=== PATIENT | female | born 1990 | race Caucasian/White ===

== ENCOUNTER 2018-03-28 16:54 | Emergency (ER) | payer OTHER ==
--- NOTE | 2018-03-28 17:33 | EDPHY ---
HPI/HX/ROS/PE/MDM Narrative: CLINICAL IMPRESSION: Right index finger laceration ASSESSMENT/PLAN: Patient is a 27-year-old female with a history of asthma and kidney stones who presents for evaluation of right index finger laceration that occurred approximately an hour and half ago. Patient is not toxic appearing, she is in no distress. Physical examination reveals 1.5 cm laceration across the dorsal aspect of the distal phalanx of the right index finger. There is no evidence of deep structure involvement, neurovascular compromise, foreign body, or bony involvement. The wound was not contaminated, tetanus status was up-to-date. The wound was irrigated and then repaired as discussed in the procedure note, the patient tolerated this well. Wound care instructions discussed. The patient does not have a primary care provider, I provided a referral for her. She can also return to the emergency department to have her sutures removed. She will call to schedule an appointment for wound check and suture removal in 5-7 days, or return here. Return precautions discussed- she will return for increased pain , signs of infection, fever, vomiting, if the wound opens or for any other concerns. Patient verbalizes understanding and is in agreement with plan. Case discussed with and patient seen by Dr. Ramos DIFFERENTIAL DIAGNOSIS: Includes but not limited to laceration of tendon or vascular structure, underlying fracture, laceration with retained FB ED PROCEDURES: Laceration Repair Verbal consent obtained by patient. Risks discussed, including but not limited to infection, pain, retained foreign body, need for additional repair, poor cosmetic result, tendon damage, nerve damage, poor wound healing, vascular damage. Alternatives to repair discussed. Jones protocol used to establish correct patient, procedure, equipment, telecommunications support, and site. Anesthesia obtained by local infiltration]. Anesthetized with 1% lidocaine without epi. Laceration location- dorsal aspect , distal phalanx right index finger, length 1.5 cm, depth 3 mm, Repair type simple, interrupted. Patient was prepped and draped in usual sterile fashion. Hemostasis achieved with direct pressure. Wound explored through full range of motion and entire depth of wound probed and visualized with gloved finger. No suspicion for nerve damage, tendon damage, underlying fracture, vascular damage, foreign body, or contamination. Area was cleansed with Shur-Clens and irrigated with sterile saline as per protocol. No foreign body or material removed. Repair method- 5.0 Prolene, simple interrupted. Five sutures placed. Well aligned, closely approximated. Wound was dressed with antibiotic ointment, non- stick dressing and she was placed in a splint. Patient tolerated well with no immediate complications. Wound care: Clean and dry x 24 hours, gently clean with soap and water, cover with topical antibiotic ointment/bandage. Suture/Staple removal: 5-7 Days CHIEF COMPLAINT: Laceration HPI: Patient is a 27-year-old female with a history of asthma and kidney stones who presents to the emergency department with a laceration to her right index finger that occurred about an hour and half prior to arrival. 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 She was immediately able to get the bleeding under control. She complains of mild pain, she denies any numbness or tingling of the distal finger. She denies any decrease in mobility. She is up- to-date on her tetanus status. She is right-hand dominant. PAST MEDICAL HISTORY: Asthma, kidney stone Pertinent Past Surgical History: Noncontributory Social History: Denies ETOH, illicit drug use or smoking. REVIEW OF SYSTEMS: All other systems negative Constitutional: No fever, no chills Musculoskeletal: No deformity, no joint pain Skin: Laceration to right index finger Neurological: No sensory loss or weakness, 2 point discrimination intact. PHYSICAL EXAM: General Appearance: Alert, oriented, appropriate for age, cooperative, NAD, well hydrated, non-toxic appearing, VSS, no hypoxia. Neurological: Alert and oriented x 3 Skin: Distal phalanx of the right index finger reveals approximately 1.5 cm laceration across the pad. It does not cross the interphalangeal joint and there is no nail bed involvement. Musculoskeletal: Right index finger with a 1.5 laceration across the dorsal aspect of the distal phalanx, each DI P tested independently, full strength. Two point discrimination is intact distally. MEDICAL DECISION MAKING: Patient was seen with Dr. Ramos. Diagnosis: Right index finger laceration. New, requires workup Summary: See assessment and plan for summary of ED visit Clinical lab tests: None . Independent visualization of images, tracing, or specimens Decision to obtain medical records or history from someone other than the patient: No Review / Summarize previous medical records : No Discussed patient with another provider: yes, Dr. Ramos (Hailee Gonzaleza Rocío) ED Course: This patient was seen and examined by me. She presents with a index finger laceration. Neurovascularly intact and motor intact to active resistance at the PIP and the DIP. I agree with Jamilah's assessment and plan. (Stefany Ramos ) General Initial Vital Signs: Initial Vital Signs Temperature (C) 36.8 C 03/28/18 17:06 Heart Rate 60 03/28/18 17:06 Respiratory Rate 16 03/28/18 17:06 Blood Pressure 125/62 H 03/28/18 17:06 O2 Sat (%) 97 03/28/18 17:06 O2 Delivery Mode Room Air Allergies/Adverse Reactions: acetaminophen [From Vicodin] Allergy (Verified 03/28/18 17:05) Vomiting hydrocodone [From Vicodin] Allergy (Verified 03/28/18 17:05) Vomiting Home Medications: Medication Instructions Recorded Advair 250/50 (*) 03/28/18 Albuterol 03/28/18 Departure - Departure Disposition: Home, Routine, Self-Care Clinical Impression: Finger laceration Qualifiers: Encounter type: initial encounter Finger: index finger Damage to nail status: without damage Foreign body presence: without foreign body Laterality: right Qualified Code(s): S61.210A - Laceration without foreign body of right index finger without damage to nail, initial encounter Condition: Good Instructions: Laceration (ED) Additional Instructions: Keep your wound covered for the next 24 hr. Do not shower for 24-48 hours. Wear splint for the next 2-3 days for protection. Do not soak until sutures are removed. Clinic here wound twice per day with regular soap and water, apply antibiotic ointment and keep covered. Your sutures will need to be removed in approximately 5-7 days, you may follow up with your primary care provider to have this done. Your laceration was not deep enough to suggest tendinous injury however if you feel a pop, if the wound opens, if you cannot straighten your finger, you should be seen immediately. Please watch for signs of infection to include redness, drainage or increased pain, for any concerns of infection return to the emergency department or your primary care provider. DISCHARGE INSTRUCTIONS FROM YOUR DOCTOR Thank you for visiting our emergency department today. Please keep in mind that discharge from the emergency department does not mean that there is nothing wrong - it simply means that we have not identified an emergency condition that requires further evaluation or treatment in the hospital. You should always plan to follow up with primary care for re-evaluation of your condition in the next 5-7 days. People present with illnesses and injuries in different ways, and it is always possible that we have missed something. You may always return for re-evaluation if symptoms worsen or if they are not improving or if you develop new/different symptoms. Again, thank you for choosing our emergency department. We hope that you feel better. Referrals: NONE *PRIMARY CARE P,. [Primary Care Provider] - As per Instructions Jv Longo MD [Medical Doctor] - As per Instructions (Please establish care if you do not have a primary care provider, suture removal in 5-7 days)
[2018-03-28 18:57] VITALS: BP 118/70
== END 2018-03-28 18:56 | disposition home or self-care (01) ==
PROC: 0HQFXZZ Repair Right Hand Skin, External Approach (ICD-10-PCS; principal; 2018-03-28)
DX: S61.210A Laceration without foreign body of right index finger without damage to nail, initial encounter (principal); W26.8XXA Contact with other sharp object(s), not elsewhere classified, initial encounter; Y99.0 Civilian activity done for income or pay

== ENCOUNTER 2018-04-26 19:59 | Emergency (ER) | payer OTHER ==
--- NOTE | 2018-04-26 20:15 | EDPHY ---
H & P Stated Complaint: cat bite to left ahnd Time Seen by Provider: 04/26/18 20:09 HPI/ROS: HPI: This is a 27-year-old female who presents with Chief Complaint: Cat bite to right hand Location: Right hand Quality: Cat bite Duration: Prior to arrival to the ER Signs and Symptoms: No bleeding, no radiation, no numbness, no weakness, no tingling, no incontinence, no decreased range of motion, no swelling, no pain, no fever, + minimal skin color changes Timing: Acute Severity: Mild Context: Patient is right-hand dominant, works at a veterinary office as a tech , presents with accidentally getting bit by a 8-year-old CT that was an outside CT that was on vaccinated. Patient reports that she felt mild, constant, nonradiating pain initially. She wash the area with soap and water and hydrogen peroxide. Reports tetanus is current. She is requesting animal Control be called and animal quarantined prior to starting rabies prophylaxis. Denies bleeding, redness, pain, radiation, paresthesias. Modifying Factors: See above Comment: ROS: A comprehensive 10 system review of systems is otherwise negative aside from elements mentioned in the history of present illness. MEDICAL/SURGICAL/SOCIAL HISTORY: Medical history: Asthma. IUD in place. Surgical history: Denies Social history: Employed. Nonsmoker. CONSTITUTIONAL: Polite and cooperative young adult white female, awake and alert, no obvious distress HEENT: Atraumatic and normocephalic. NECK: supple EXTREMITIES: 2/2 pulses, strength 5/5, right palm at the base of the thumb shows mild pinpoint area that is very superficial and mildly red. No clear puncture site. No bleeding, no discharge. DIP/PIP/MCP flexion/extension intact with good light touch sensation. no deformities, no clubbing, no cyanosis or edema. NEUROLOGICAL: no focal neuro deficits. GCS 15. Light touch sensation intact. SKIN: Warm and dry, no erythema. no rash. Good capillary refill. Source: Patient Exam Limitations: No limitations - Personal History LMP (Females 10-55): IUD In Place Current Tetanus Diphtheria and Acellular Pertussis (TDAP): Yes - Medical/Surgical History Hx Asthma: Yes Hx Chronic Respiratory Disease: No Hx Diabetes: No Hx Cardiac Disease: No Hx Renal Disease: No Hx Cirrhosis: No Hx Alcoholism: No Hx HIV/AIDS: No Hx Splenectomy or Spleen Trauma: No Other PMH: asthma - Social History Smoking Status: Never smoked Constitutional: Initial Vital Signs Temperature (C) 36.8 C 04/26/18 20:02 Heart Rate 68 04/26/18 20:02 Respiratory Rate 18 04/26/18 20:02 Blood Pressure 107/73 04/26/18 20:02 O2 Sat (%) 97 04/26/18 20:02 O2 Delivery Mode Room Air Allergies/Adverse Reactions: acetaminophen [From Vicodin] Allergy (Verified 04/26/18 20:01) Vomiting hydrocodone [From Vicodin] Allergy (Verified 04/26/18 20:01) Vomiting Home Medications: Medication Instructions Recorded Advair 250/50 (*) 03/28/18 Albuterol 03/28/18 Amoxicillin/Clavulanate Pot 875 mg PO BID #14 tab 04/26/18 [Augmentin 875 MG TAB (*)] Medical Decision Making ED Course/Re-evaluation: Tetanus is up-to-date. Animal control called and cat will be quarantined Rabies prophylaxis not indicated at this time Given a prescription for Augmentin for antibiotic prophylaxis 2048: Animal control at bedside. No signs of neurovascular compromise/tenting of skin/compartment syndrome/ extremities and joints examined above and below area of concern and are neurovascularly intact/cellulitis. This patient was seen under the supervision of my secondary supervising physician. I evaluated care for this patient independently. Discussed this patient with Dr. Rodriguez who did not see the patient. Differential Diagnosis: Differential diagnosis includes but is not limited to cat bite, cellulitis. - Data Points Medications Given: Discontinued Medications Amoxicillin/Clavulanate Potassium (Augmentin 875mg) 875 mg PO EDNOW ONE PRN Reason: Protocol Stop: 04/26/18 20:24 Last Admin: 04/26/18 20:35 Dose: 875 mg Departure - Departure Disposition: Home, Routine, Self-Care Clinical Impression: Cat bite of right hand Qualifiers: Encounter type: initial encounter Qualified Code(s): S61.451A - Open bite of right hand, initial encounter Condition: Good Instructions: Rabies Vaccine (By injection), Rabies Immune Globulin (By injection), Animal Bite (ED) Additional Instructions: Wash the site daily with mild soap and water; pat dry. Take Tylenol 650 mg every 4 hours and/or Ibuprofen 600 mg every 8 hours with food as needed for pain. Take Augmentin twice daily x7 days for antibiotic prophylaxis. Return to the ER immediately if you experience redness, red streaks, have fevers /chills, flu like symptoms, limited range of motion, or any other symptoms that concern you. Referrals: Mariaa Hannah MD [Medical Doctor] - As per Instructions Prescriptions: Amoxicillin/Clavulanate Pot [Augmentin 875 MG TAB (*)] 875 mg PO BID #14 tab
[2018-04-26] MEDS ORDERED: AMOXICILLIN/CLAVULANATE POT 875/125 MG TAB PO ONE (20:23)
[2018-04-26 21:12] VITALS: BP 106/66
== END 2018-04-26 21:10 | disposition home or self-care (01) ==
DX: S61.431A Puncture wound without foreign body of right hand, initial encounter (principal); W55.01XA Bitten by cat, initial encounter; Y92.239 Unspecified place in hospital as the place of occurrence of the external cause; Y99.9 Unspecified external cause status; Y93.9 Activity, unspecified